=== PATIENT | female | born 1945 | race Caucasian/White ===

== ENCOUNTER 2021-02-13 12:10 | Emergency (ER) | payer MEDICARE, BC ==
[2021-02-13] MEDS ORDERED: Sodium Chloride 0.9% 10 ML Syringe FLUSH PRN (12:46)
--- NOTE | 2021-02-13 12:54 | EDM.PDOC ---
ED HPI GENERAL MEDICAL PROBLEM - General Chief Complaint: Cardiovascular Problem Stated Complaint: RAPID HEART RATE SENT BY [facility] Time Seen by Provider: 02/13/21 12:22 Source of Information: Reports: Patient History Limitations: Reports: No Limitations - History of Present Illness INITIAL COMMENTS - FREE TEXT/NARRATIVE: 75-year-old female presents to the emergency department with complaints of rapid heartbeat. Patient states that she was traveling from [place] to [facility] this morning and began to feel nauseated with a headache. She states they stopped in [facility] walk-in clinic and they told her that she needed to be seen in the emergency department. Patient states prior to arriving the emergency department she stopped at a gas station and use the restroom. She states that when she stood up from the toilet she became very dizzy and developed heart palpitations. She states when she sat there for a bit this started to resolve however she is still feeling slightly nauseated. She states that this morning as she was packing getting ready to leave she ate half of a muffin had some apple juice and a cup of decaffeinated coffee. She states she developed slight nausea at that time and a headache. She however was still able to eat a breakfast sandwich from a fast food restaurant and drove from [place] to [place]. Of note she does have a history of rapid heartbeat for which she takes Cardizem daily. She also has an appointment with a line analyst at the end of this month to evaluate this. Upon presentation to the emergency department the patient is in a sinus rhythm in the 80s. - Related Data Allergies Allergy/AdvReac Type Severity Reaction Status Date / Time latex Allergy Rash Verified 02/13/21 12:23 oxycodone Allergy Chest Verified 02/13/21 12:23 Tightness Penicillins Allergy Cannot Verified 02/13/21 12:23 Remember Home Meds: Home Meds Aspirin 81 mg PO DAILY 02/13/21 [History] Carboxymethylcellulose Sodium [Artificial Tears] 15 ml OP ASDIRECTED 02/13/21 [History] Cholecalciferol (Vitamin D3) [D-2000] 2,000 unit PO DAILY 02/13/21 [History] L.acidoph,Paracasei, B.lactis [Probiotic] 1 each PO DAILY 02/13/21 [History] [place]-3 Fatty Acids/Fish Oil [Fish Oil 1,000 mg Capsule] 1 tab PO DAILY 02/13/21 [History] Sertraline [Zoloft] 25 mg DAILY 02/13/21 [History] Ubidecarenone [Co Q-10] 100 mg PO DAILY 02/13/21 [History] dilTIAZem HCL [Cardizem] 60 mg PO ASDIRECTED PRN 02/13/21 [History] dilTIAZem HCL [Diltiazem ER] 180 mg PO DAILY 02/13/21 [History] ED ROS GENERAL - Review of Systems Review Of Systems: See Below Constitutional: Reports: No Symptoms. Denies: Fever, Chills HEENT: Reports: No Symptoms Respiratory: Reports: No Symptoms. Denies: Shortness of Breath, Cough, Sputum Cardiovascular: Reports: Lightheadedness (Upon standing up quickly), Palpitations (Upon standing up quickly). Denies: Chest Pain, Edema, Syncope Endocrine: Reports: No Symptoms GI/Abdominal: Reports: Diarrhea (X1 stool), Nausea. Denies: Abdominal Pain, Constipation, Vomiting : Reports: No Symptoms Musculoskeletal: Reports: No Symptoms Skin: Reports: No Symptoms Neurological: Reports: Headache Psychiatric: Reports: No Symptoms Hematologic/Lymphatic: Reports: No Symptoms Immunologic: Reports: No Symptoms ED EXAM, GENERAL - Physical Exam Exam: See Below Exam Limited By: No Limitations General Appearance: Alert, WD/WN, No Apparent Distress Ears: Normal External Exam, Hearing Grossly Normal Nose: Normal Inspection Throat/Mouth: Normal Inspection, Normal Lips, Normal Voice, No Airway Compromise Head: Atraumatic, Normocephalic Neck: Normal Inspection, Supple, Non-Tender Respiratory/Chest: No Respiratory Distress, Lungs Clear, Normal Breath Sounds, No Accessory Muscle Use, Chest Non-Tender Cardiovascular: Normal Peripheral Pulses, Regular Rate, Rhythm, No Edema, No Murmur Peripheral Pulses: 2+: Radial (L), Radial (R) GI/Abdominal: Normal Bowel Sounds, Soft, Non-Tender, No Distention (Female) Exam: Deferred Rectal (Female) Exam: Deferred Back Exam: Normal Inspection, Full Range of Motion, Other (Kyphosis noted) Extremities: Normal Inspection, Normal Range of Motion, Non-Tender, No Pedal Edema, Normal Capillary Refill Neurological: Alert, Oriented, Normal Cognition Psychiatric: Normal Affect, Normal Mood Skin Exam: Warm, Dry, Intact, Normal Color, No Rash Lymphatic: No Adenopathy #1 Interpretation EKG Date: 02/13/21 Time: 12:20 Rhythm: NSR Rate (Beats/Min): 86 [place]: Normal P-Wave: Present QRS: Normal ST-T: Normal QT: Normal Comparison: NA - No Prior EKG EKG Interpretation Comments: Per Dr. Padilla interpretation: sinus rhythm at 85/min, near Q wave V1 & Q wave V2-consider possible possible anterseptal LA, diffuse early repolarization abnormality, decreased voltage limb leads, near Q wave III & AVF-old inferior wall LA Course - Vital Signs Text/Narrative:: 75-year-old female with a history of rapid heartbeat for which she takes Cardizem. Presents to the emergency department this morning after feeling nauseated and having a headache and then she used the restroom and stood up quickly and developed dizziness and palpitations at that time. Patient does have a history of this. She will be seeing a line analyst at the end of this month for further evaluation. Patient denies any recent fever, chills, vomiting. She states she did have a normal bowel movement this morning but then shortly thereafter had a second and it was slightly loose. She also does report she has had nausea and a slight headache throughout the morning. Denies any chest pressure or pain with the palpitations. I have ordered labs, chest x- ray, and an EKG. Last Recorded V/S: Last Vital Signs Temp 97.6 F 02/13/21 12:33 Pulse 87 02/13/21 12:33 Resp 16 02/13/21 12:33 BP 150/70 H 02/13/21 12:33 Pulse Ox 99 02/13/21 12:33 - Orders/Labs/Meds Orders: Active Orders 24 hr Category Date Time Status EKG 12 Lead [EKG Documentation Completion] [RC] STAT Care 02/13/21 12:47 Active Chest 1V Frontal [CR] Stat Exams 02/13/21 12:46 Taken Sodium Chloride 0.9% [Saline Flush] Med 02/13/21 12:46 Active 10 ml FLUSH ASDIRECTED PRN Saline Lock Insert [OM.PC] Stat Oth 02/13/21 12:46 Ordered Medication Orders Sodium Chloride (Sodium Chloride 0.9% 10 Ml Syringe) 10 ml FLUSH ASDIRECTED PRN PRN Reason: Keep Vein Open Last Admin: 02/13/21 13:17 Dose: 10 ml Documented by: HI Labs: Laboratory Tests 02/13/21 02/13/21 02/13/21 Range/Units 12:15 12:54 12:54 WBC 4.95 (3.98-10.04) K/mm3 RBC 4.42 (3.98-5.22) M/mm3 Hgb 12.5 (11.2-15.7) gm/dl Hct 38.2 (34.1-44.9) % MCV 86.4 (79.4-94.8) fl MCH 28.3 (25.6-32.2) pg MCHC 32.7 (32.2-35.5) g/dl RDW Std Deviation 43.7 (36.4-46.3) fL Plt Count 241 (182-369) K/mm3 MPV 10.0 (9.4-12.3) fl Neut % (Auto) 74.5 H (34.0-71.1) % Lymph % (Auto) 17.2 L (19.3-51.7) % [place] % (Auto) 7.1 (4.7-12.5) % Eos % (Auto) 0.4 L (0.7-5.8) Baso % (Auto) 0.4 (0.1-1.2) % Neut # (Auto) 3.69 (1.56-6.13) K/mm3 Lymph # (Auto) 0.85 L (1.18-3.74) K/mm3 [place] # (Auto) 0.35 (0.24-0.36) K/mm3 Eos # (Auto) 0.02 L (0.04-0.36) K/mm3 Baso # (Auto) 0.02 (0.01-0.08) K/mm3 Sodium 141 (136-145) mEq/L Potassium 3.9 (3.5-5.1) mEq/L Chloride 101 (98-107) mEq/L Carbon Dioxide 31 (21-32) mEq/L Anion Gap 12.9 (5-15) BUN 14 (7-18) mg/dL Creatinine 0.6 (0.55-1.02) mg/dL Est Cr Clr Drug Dosing 63.82 mL/min Estimated GFR (MDRD) > 60 (>60) mL/min BUN/Creatinine Ratio 23.3 H (14-18) Glucose 137 H (83-115) mg/dL Calcium 9.8 (8.5-10.1) mg/dL Magnesium 1.8 (1.8-2.4) mg/dl Total Bilirubin 0.3 (0.2-1.0) mg/dL AST 26 (15-37) U/L ALT 31 (14-59) U/L Alkaline Phosphatase 75 (46-116) U/L Troponin I < 0.017 (0.00-0.056) ng/mL C-Reactive Protein <0.2 (<1.0) mg/dL Total Protein 7.2 (6.4-8.2) g/dl Albumin 4.1 (3.4-5.0) g/dl Globulin 3.1 gm/dL Albumin/Globulin Ratio 1.3 (1-2) Urine Color Yellow (Yellow) Urine Appearance Clear (Clear) Urine pH 6.5 (5.0-8.0) Ur Specific [place] 1.020 (1.005-1.030) Urine Protein Negative (Negative) Urine Glucose (UA) Negative (Negative) Urine Ketones Negative (Negative) Urine Occult Blood Negative (Negative) Urine Nitrite Negative (Negative) Urine Bilirubin Negative (Negative) Urine Urobilinogen 0.2 (0.2-1.0) Ur Leukocyte Esterase Negative (Negative) Meds: Medications Generic Name Dose Route Start Last Admin Trade Name Freq PRN Reason Stop Dose Admin Sodium Chloride 10 ml 02/13/21 12:46 02/13/21 13:17 Sodium Chloride 0.9% 10 Ml Syringe FLUSH 10 ml ASDIRECTED PRN Administration Keep Vein Open - Re-Assessments/Exams Free Text/Narrative Re-Assessment/Exam: 02/13/21 13:47 Hematology is essentially unremarkable, chemistry is unremarkable, troponin less than 0.017, Urinalysis is unremarkable as well. Patient will be discharged to home with recommendations that she keep her cardiology appointment as previously scheduled. 02/13/21 13:48 Nothing acute is appreciated on portable chest x-ray. Departure - Departure Time of Disposition: 14:00 Disposition: Home, Self-Care 01 Condition: Good Clinical Impression: Palpitations Instructions: Palpitations, [id number] Referrals: Mirian Sapp MD [Primary Care Provider] - Forms: ED Department Discharge Additional Instructions: You were seen in the ED today with palpitations. Full cardiac workup was completed and was unremarkable. You were in a normal rhythm at 86 beats per minute at the time of evaluation and we never saw a rapid rate while in the emergency department. You did not have a heart attack. It is likely that you are slightly dehydrated from gastroenteritis and when you stood up too quickly, your blood pressure dropped resulting in dizziness and palpitations. You were given nausea medication while in the emergency department. Please wait 30 minutes prior to eating or drinking to make sure the medication works. Recommend that you follow up with your line analyst as previously scheduled. Should your condition worsen or change do not hesitate to return to the emergency department. Sepsis Event Note (ED) - Evaluation Sepsis Screening Result: No Definite Risk - Focused Exam Vital Signs: Vital Signs Temp Pulse Resp BP Pulse Ox 02/13/21 12:33 97.6 F 87 16 150/70 H 99 - My Orders Last 24 Hours: My Active Orders 02/13/21 12:46 Chest 1V Frontal [CR] Stat Sodium Chloride 0.9% [Saline Flush] 10 ml FLUSH ASDIRECTED PRN Saline Lock Insert [OM.PC] Stat 02/13/21 12:47 EKG 12 Lead [EKG Documentation Completion] [RC] STAT - Assessment/Plan Last 24 Hours: My Active Orders 02/13/21 12:46 Chest 1V Frontal [CR] Stat Sodium Chloride 0.9% [Saline Flush] 10 ml FLUSH ASDIRECTED PRN Saline Lock Insert [OM.PC] Stat 02/13/21 12:47 EKG 12 Lead [EKG Documentation Completion] [RC] STAT
[2021-02-13] MEDS ORDERED: Ondansetron 4 MG Tab.DIS PO ONE (14:00)
--- NOTE | 2021-02-13 14:22 | CR ---
Chest: Portable view of the chest was obtained. Comparison: No prior chest imaging is available. Heart size and mediastinum are within normal limits for portable technique. Slight tortuosity of the thoracic aorta is seen. Lungs are clear with no acute parenchymal change. Previous right-sided mastectomy is seen. Surgical clips are seen within right axillary region. Slight scoliosis is noted within the spine with mild degenerative change also seen within the spine. Impression: 1. Findings as noted above. 2. Nothing acute is seen on portable chest x-ray. Diagnostic code #2
== END 2021-02-13 14:25 | disposition home or self-care (01) ==
LOC: JD.ED 12:10
DX: R00.2 Palpitations (principal); R42 Dizziness and giddiness; R19.7 Diarrhea, unspecified; R11.0 Nausea; R51.9 Headache, unspecified; M40.209 Unspecified kyphosis, site unspecified; Z91.040 Latex allergy status; Z88.5 Allergy status to narcotic agent; Z88.0 Allergy status to penicillin; Z79.82 Long term (current) use of aspirin; Z79.899 Other long term (current) drug therapy
CPT/HCPCS: 36415; 71045; 80053; 81003; 83735; 84484; 85025; 86140; 93005; 99285; A9270; 93010; 99283